=== PATIENT | female | born 1975 | race Caucasian/White ===

== ENCOUNTER 2018-11-14 15:49 | Outpatient (REF) | payer OTHER, SELFPAY ==
--- NOTE | 2018-11-14 15:00 | PAPFT_PTH ---
PATIENT: Bhavna Tenorio LOC: NCN U#:[id number] AGE/SX: 43/F ROOM: RE11/14/[address]: Suzi Bautista : 1975 BED: DIS: 11/14/2018 SPEC #: [id number] RECD: 11/15/18 12:59 STATUS: YEISON REJuan #: [id number] RON: 11/14/18 15:[address]: Suzi Bautista DEPT: [facility] Cytology RECD BY: Lora Freitas Tissues: 1 - CX/ENDOCX FOR PAP SMEARS Procedures: PAP THIN PREP/UVM Screening HPV DNA PROBE Comments: [id number]
[2018-11-14 21:39] LABS: Anion Gap 8.8 mmol/L (3-11); BUN 9 mg/dL (7-18); CO2 29.2 mmol/L (21.0-32.0); CREATININE 0.77 mg/dL (0.55-1.02); Calcium 9.3 mg/dL (8.5-10.1); Chloride 101 mmol/L (98-107); Cholesterol 195 mg/dL (50-200); Glucose 78 mg/dL (70-100); HDL Cholesterol 66 mg/dL (40-60); LDL CHOLESTEROL 103 mg/dL (<100); Potassium 3.6 mmol/L (3.5-5.1); Sodium 139 mmol/L (136-145); Triglyceride 131 mg/dL (30-150)
== END 2018-11-14 16:09 ==
LOC: NCHCN 15:49
PROVIDERS: PCP Registered Nurse; Visit Provider Registered Nurse
DX: Z00.00 Encounter for general adult medical examination without abnormal findings (principal); Z13.220 Encounter for screening for lipoid disorders; Z13.228 Encounter for screening for other metabolic disorders; Z12.4 Encounter for screening for malignant neoplasm of cervix; Z11.51 Encounter for screening for human papillomavirus (HPV)
CPT/HCPCS: 80048; 80061; 83721; 88142; 87624

== ENCOUNTER 2020-09-03 17:21 | Outpatient (REF) | payer OTHER, SELFPAY ==
[2020-09-03 21:08] LABS: ALT 28 U/L (14-59); AST 15 U/L (15-37); Albumin 3.8 g/dL (3.4-5.0); Alkaline Phosphatase 78 U/L (46-116); Anion Gap 9.9 mmol/L (3-11); BUN 9 mg/dL (7-18); Bilirubin, Total 0.6 mg/dL (0.2-1.0); CO2 28.1 mmol/L (21.0-32.0); CREATININE 0.68 mg/dL (0.55-1.02); Calcium 8.6 mg/dL (8.5-10.1); Chloride 103 mmol/L (98-107); Glucose 128 mg/dL (74-106); Potassium 3.7 mmol/L (3.5-5.1); Sodium 141 mmol/L (136-145); Total Protein 6.5 g/dL (6.4-8.2)
== END 2020-09-03 17:41 ==
LOC: NCHCN 17:21
PROVIDERS: PCP Registered Nurse; Visit Provider Registered Nurse
DX: I10 Essential (primary) hypertension (principal); Z72.89 Other problems related to lifestyle
CPT/HCPCS: 80053

== ENCOUNTER 2021-12-23 16:50 | Outpatient (REF) | payer BC, SELFPAY ==
[2021-12-23 14:41] LABS: ALT 31 U/L (14-59); AST 16 U/L (15-37); Albumin 3.9 g/dL (3.4-5.0); Alkaline Phosphatase 70 U/L (46-116); Anion Gap 8.8 mmol/L (3-11); BUN 9 mg/dL (7-18); Bilirubin, Total 0.6 mg/dL (0.2-1.0); CO2 26.2 mmol/L (21.0-32.0); CREATININE 0.6 mg/dL (0.55-1.02); Chloride 104 mmol/L (98-107); Glucose 105 mg/dL (74-106); Potassium 4.1 mmol/L (3.5-5.1); Sodium 139 mmol/L (136-145); Total Protein 6.8 g/dL (6.4-8.2)
== END 2021-12-23 16:51 | disposition home or self-care (01) ==
LOC: NCHCN 16:50
PROVIDERS: PCP Registered Nurse; Visit Provider Registered Nurse
DX: I10 Essential (primary) hypertension (principal); Z72.89 Other problems related to lifestyle
CPT/HCPCS: 80053

== ENCOUNTER 2022-11-09 15:19 | Outpatient (REF) | payer BC, SELFPAY ==
--- NOTE | 2022-11-09 14:00 | ENDOMET_PTH ---
PATIENT: Bhavna Tenorio LOC: DEMETRICE U#:[id number] AGE/SX: 47/F ROOM: RE11/09/[address]: Svetlana Arce MD : 1975 BED: DIS: 11/09/2022 SPEC #: [id number] RECD: 11/09/22 18:20 STATUS: YEISON REQ #: [id number] RON: 11/09/22 14:[address]: Svetlana Arce DEPT: Surgical Specimen RECD BY: Lora Freitas ENTERED: 11/09/22 18:22 SP TYPE: Endomet OTHR DR: Suzi Bautista Tissues: 1 - ENDOMETRIUM BX/RIZWAN Procedures: GROSS AND MICRO LEVEL 4 Comments: [id number]
--- OUTSIDE RECORDS SUMMARY | 2022-11-09 15:20 | XMS_ITS | Continuity of Care Document ---
:1975 Author Organization [facility] Address [address] [place] [address] Care Team Providers Name Role Phone Suzi Bautista Primary Care Physician Encounter NCTY_ID Date(s): 09/13/22 - 09/13/[address] [address] Discharge Disposition: Home or Self Care Attending Physician: Suzi Bautista Admitting Physician: Suzi Bautista Referring Physician: Suzi Bautista Social History Social History Type Response Sex Female Patient Care team information PersonnelName: Suzi Bautista Address: Address: [address] [address]
--- OUTSIDE RECORDS SUMMARY | 2022-11-09 15:20 | XMS_ITS | Continuity of Care Document ---
:1975 Author Organization [facility] Address [address] [place] [address] Care Team Providers Name Role Phone Suzi Bautista Primary Care Physician Encounter NCTY_SD Date(s): 09/20/22 - 09/20/22 [facility] [address] [place] [address] Discharge Disposition: Home or Self Care Attending Physician: Kana Elliott DDS Admitting Physician: Kana Elliott DDS Referring Physician: Kana Elliott DDS Social History Social History Type Response Sex Female Patient Care team information PersonnelName: Suzi Bautista [employer] Address: Address: [address] [address]- [place]
== END 2022-11-09 15:20 | disposition home or self-care (01) ==
LOC: LBN 15:19
PROVIDERS: PCP Registered Nurse; Visit Provider Obstetrics & Gynecology
DX: N85.8 Other specified noninflammatory disorders of uterus (principal); T38.5X5A Adverse effect of other estrogens and progestogens, initial encounter; N93.8 Other specified abnormal uterine and vaginal bleeding
CPT/HCPCS: 88305

== ENCOUNTER 2022-11-13 02:53 | Outpatient (CLI) | payer BC, SELFPAY ==
[2022-11-13 09:50] LABS: HCT 45.5 % (36.0-46.0); HGB 15.7 g/dL (11.2-15.7); MCH 33.5 pg (27.0-33.0); MCHC 34.5 % (32.0-36.0); MCV 97 fL (80-95); MPV 9.3 fL (8.0-11.0); Platelet Count 219 10^3/uL (130-400); RBC 4.69 10^6/uL (3.93-5.22); RDW 12.6 % (11.7-14.6); RDW-SD 45.1 fL; WBC 8.52 10^3/uL (4.4-10.8)
[2022-11-13 10:30] LABS: Source Nasal/Nares
[2022-11-13 11:11] LABS: COVID-19 PCR Negative (Negative)
== END 2022-11-13 02:54 | disposition home or self-care (01) ==
LOC: LBO 02:53
PROVIDERS: Obstetrics & Gynecology Gynecology; PCP Registered Nurse; Visit Provider Obstetrics & Gynecology
DX: D25.9 Leiomyoma of uterus, unspecified (principal); N92.4 Excessive bleeding in the premenopausal period; Z01.818 Encounter for other preprocedural examination; Z01.812 Encounter for preprocedural laboratory examination
CPT/HCPCS: 36415; 85027; 86850; 86900; 86901; 87635

== ENCOUNTER 2022-11-15 07:48 | Inpatient (IN) | payer BC, SELFPAY ==
[2022-11-15] VITALS (16 sets, daily range): BP systolic 77–155; BP diastolic 39–90; PULSE 64–85; RESP 11–18; TEMP 36.3–37.2; O2SAT 96–98
[2022-11-15 08:07] LABS: Source Nasal/Nares
[2022-11-15] MEDS: Lactated Ringers 1,000 ML 125 ML IV ×2 (08:24→13:15)
[2022-11-15 08:46] LABS: COVID-19 PCR Negative (Negative)
[2022-11-15] MEDS: metroNIDAZOLE 500 MG TAB PO (09:00)
--- NOTE | 2022-11-15 09:13 | W.ANESPRE ---
General Info Date of Service Date Performed: 11/15/22 Height: 5 ft 6 in Weight: 84.482 kg Body Mass Index (BMI): 30.0 Surgical Procedure: Operation Date: 11/15/22 09:25 Proposed Procedure Side Surgeon p Hysterectomy Abdominal Svetlana Arce MD Meds Allergies and Home Medications Allergies Allergy/AdvReac Type Severity Reaction Status Date / Time No Known Allergies Allergy Verified 11/15/22 08:21 Home Medication Medication Instructions Recorded lisinopril 10 mg tablet 10 mg PO DAILY 10/09/22 Current Visit Medications: Current Medications Generic Name Dose Route Start Last Admin Trade Name Freq PRN Reason Stop Dose Admin Ringer's Solution 1,000 mls @ 125 mls/hr 11/15/22 06:00 11/15/22 08:24 IV 12/14/22 23:59 125 mls/hr INFUSION SCAR Administration Cefazolin Sodium/Dextrose 2 gm in 50 mls @ 100 mls/hr 11/15/22 06:00 Ancef Duplex IVPB 11/15/22 16:00 PREOP SCAR IV Miscellaneous Supplies 1 each 11/15/22 06:00 Iv Access IV 12/14/22 23:59 DIRECTED SCAR Metronidazole 500 mg 11/15/22 09:00 11/15/22 09:00 Metronidazole 500 Mg Tab PO 11/15/22 16:00 500 mg PREOP SCAR Administration Sodium Chloride 0 ml 11/15/22 06:00 Normal Saline Flush 10 Ml Syr IV 12/14/22 23:59 PRN PRN Sodium Chloride 0 ml 11/15/22 06:00 Normal Saline 10 Ml Vial IJ 12/14/22 23:59 DIRECTED PRN Sterile Water 0 ml 11/15/22 06:00 Water,Injection,Sterile 10 Ml Vial IJ 12/14/22 23:59 DIRECTED PRN PFSH Active Problems Active Problems: Problem Status Onset Code Fibroid uterus D25.9 Abnormal perimenopausal bleeding N92.4 Hypertension I10 Medical History Medical History Comments:: 11/15/22 pt reports mother is sensative to medications, meaning small doses go a long way Tobacco Smoking/Tobacco Use Status: Current every day Tobacco Type: cigarettes Smoking packs per day: 1 Smoking cigarettes per day: 20.0 Alcohol Alcohol Intake: current Alcohol intake frequency: a few times a week Details: Pt reports 6 2-3 times a week Substance Use Substance use: Never Substance use type: does not use Prental History History Para 2 Hx # Term Pregnancies 2 Multiple births Hx # Pregnancies Ectopic pregnancies AB induced Hx Number of Living Children 2 AB spontaneous Past Pregnancies Del. Date GA/Weeks # Preg Succ Route Wgt Sex Labor Lgth Anesthesia Location Prov [facility] 01/13/96 40 Yes vaginal 3798.836 g Female [facility] 05/11/98 40 Yes vaginal 3231.846 g Female [facility] Delivery Date: 01/13/96 Last Updated by: Yumiko Garrett Delivery Date: 05/11/98 Last Updated by: Yumiko De Paz Vital Signs and Lab Results Vital Signs Most Recent Vital Signs in EMR: Most Recent Vital Signs Temp Pulse Resp BP Pulse Ox 36.4 C L 83 16 155/90 H 98 11/15/22 08:12 11/15/22 08:12 11/15/22 08:12 11/15/22 08:12 11/15/22 08:12 Lab Results Blood Type / Crossmatch: Patient ABO/Rh O Positive 11/13/22 Antibody Screen NEGATIVE 11/13/22 Complete Blood Count: White Blood Count 8.52 10^3/uL (4.4-10.8) 11/13/22 09:40 Red Blood Count 4.69 10^6/uL (3.93-5.22) 11/13/22 09:40 Hemoglobin 15.7 g/dL (11.2-15.7) 11/13/22 09:40 Hematocrit 45.5 % (36.0-46.0) 11/13/22 09:40 Platelet Count 219 10^3/uL (130-400) 11/13/22 09:40 Complete Metabolic Panel: No Data to Display Liver Function Panel: No Data to Display Coagulation Panel: No Data to Display Cardiac Panel: No Data to Display Arterial Blood Gas: No Data to Display Venous Blood Gas: No Data to Display Pancreas Panel: No Data to Display Thyroid Panel: No Data to Display Infectious Disease: Coronavirus (COVID-19)(PCR) Negative (Negative) 11/13/22 09:55 Coronavirus 2019 Source Nasal/Nares 11/15/22 08:00 Blood Cultures: No Data to Display Toxicology Panel: No Data to Display Panel: No Data to Display Anesthesia Assessment and Plan Anesthesia History Personal History: No History of General Anesthesia Family History: No Family History of Anesthesia Complications Exercise Tolerance Exercise Tolerance: Metabolic Equivalents>4 Pertinent Negatives Pertinent Negatives: No Symptoms of GERD, No Major Cardiovascular Symptoms or Complaints, No Major Pulmonary Symptoms or Complaints and No History of CVA/TIA Cardiac & Pulmonary Exam Cardiac Exam: Normal S1/S2 Heart Sounds Pulmonary Exam: Clear Bilateral Breath Sounds Implantable Cardiac Device Does patient have a Pacemaker or an ICD?: No Airway Exam Known Difficult Airway: No Mallampati Class: 2 Mouth Opening: Normal (> 3cm) Thyromental Distance: Greater than 3 cm Neck Range of Motion: Full ROM Neck Circumference: Normal Teeth Condition: Generalized Poor Dentition Airway Comments: Slightly loose right upper tooth ASA Classification ASA Score: ASA 2 Emergency Case?: No NPO Status NPO Status: NPO Clears >2 hours, Solids >8 hours Status Status: Not Per Patient Anesthesia Plan Resuscitation Status: Full Code Anesthesia Technique: General Anesthesia Airway Planned: Endotracheal Tube Pain Management: Intrathecal Analgesia Monitors Used: Standard Monitors
[2022-11-15] MEDS: ceFAZolin 2 GM/50 ML BAG IVPB (09:41)
--- NOTE | 2022-11-15 10:50 | UTER_PTH ---
PATIENT: Bhavna Tenorio LOC: OBS U#:[id number] AGE/SX: 47/F ROOM: OBS.306 RE11/15/[address]: Svetlana Arce MD : 1975 BED: A DIS: 11/16/2022 SPEC #: [id number] RECD: 11/15/22 13:01 STATUS: YEISON REQ #: [id number] RON: 11/15/22 10:[address]: Svetlana Arce DEPT: Surgical Specimen RECD BY: Lora Freitas ENTERED: 11/15/22 13:02 SP TYPE: UTER OTHR DR: Suzi Bautista Tissues: 1 - OVARY NOT TUMOR W OR W/O TUBES 2 - OVARY NOT TUMOR W OR W/O TUBES 3 - UTERUS W OR W/O OVARIES(NOT TUMOR/PROLAPSE) Procedures: GROSS AND MICRO LEVEL 5 Comments: [id number] (PLEASE VENEGAS)
--- NOTE | 2022-11-15 11:00 | PAPNONF_PTH ---
PATIENT: Bhavna Tenorio LOC: OBS U#:[id number] AGE/SX: 47/F ROOM: OBS.306 RE11/15/[address]: Svetlana Arce MD : 1975 BED: A DIS: 11/16/2022 SPEC #: [id number] RECD: 11/15/22 13:14 STATUS: YEISON REQ #: [id number] RON: 11/15/22 11:[address]: Svetlana Arce DEPT: [facility] Cytology RECD BY: Lora Freitas ENTERED: 11/15/22 13:14 SP TYPE: PAPREALF KHLOE DR: Suzi Bautista Tissues: 1 - BODY FLUID CYTO(SPUTUM/URINE)UVM Procedures: BODY FLUID CYTO(URINE/SPUTUM) Comments: [id number] (SENT FRESH) (PLEASE VENEGAS) (REFRIGERATED)
[2022-11-15] MEDS: Bupivacaine 0.25% Pres-Free 10 ML VIAL (12:10)
--- NOTE | 2022-11-15 12:52 | ROE_ITS ---
Date of service: 11/15/22 Time of Service: 10:00 Operative Note Operative Note DATE OF PROCEDURE: 11/15/22 PRE-OP DIAGNOSIS: large pedunculated uterine fibroid POST-OP DIAGNOSIS: other (Enlarged left ovarian mass) PROCEDURE: Total Abdominal Hysterectomy, Bilateral salpingoophorectomy, pelvic washings SURGEON: Svetlana Arce ASSISTING SURGEON: Tiffanie Perla Refer to Anesthesia Record ESTIMATED BLOOD LOSS: 140 PATHOLOGY: other (uterus, cervix, ovaries and tubes) COMPLICATIONS: None Patient was transported to: PACU Patient's condition: stable Indications: Pt had what was thought to be a large pedunculated fibroid on ultrasound. She had been having irregular bleeding x2yrs since switching her Mirena IUD. She desired definitive treatment with hysterectomy. Findings: Enlarged solid left ovary, 12-13cm, smooth walled with one small area adhesed to the right pelvic sidewall. Normal appearing right ovary with a small cyst. Normal appearing uterus with IUD in situ. Normal appearing tubes with the left one stuck to the left ovary. Unable to visualize the appendix Procedure Description: After informed consent was signed the patient was taken to the operating room. She was given spinal anesthesia, SCDs were placed on her legs and a lizama catheter was introduced into her bladder. Exam under anesthesia revealed an enlarged pelvic mass. She underwent abdominal and vaginal prep and was draped in the dorsal supine position. The patient was tested and spinal anesthesia was found to be adequate. A time out was performed. The skin was injected with bupivocaine along the length of the planned incision.A skin incision was made with the scalpel and carried down to the underlying layer of fascia with blunt dissection. The fascia was incised on either side of the midline and the fascial incision extended laterally with a combination of sharp and blunt dissection. The inferior edge of the fascia was grasped with yesy clamps and tented up and dissected down with a combination of sharp and blunt dissection. Then the superior edge of the fascial incision was grasped with yesy clamps and tented up and dissected down with a combination of sharp and blunt dissection. The rectus muscles were in the midline and the peritoneum was entered bluntly. The peritoneal incision was extended laterally with blunt dissection. Upon entrance into the abdominal cavity a large firm white mass was noted and was delivered from the abdomen. A fallopian tube was adherent to the mass. After further inspection a normal uterus was discovered and the mass was noted to be the left ovary. The right ovary was identified and appeared normal with a small cyst. Pelvic washings were collected. Then an intra-op [place] [facility] [place]. The left ovary had a small amount of adhesions to the right pelvic side wall above the uterus. These were released with blunt dissection. The utero-ovarian ligament was then clamped, cauterized and cut with the hand-held ligasure device. The infundibulo-pelvic ligament was identified and clamped, cauterized and cut. The broad ligament was then further clamped, cauterized and cut to release the left ovary and tube. The bowel was packed with moist laps and the O'Hill-O'Sun retractor was inserted. The left round ligament was identified and clamped, cauterized and cut. Dissection via cautery was continued along the anterior and posterior leaf of the broad ligament. The uterine vessels were identified, then clamped and cauterized x2 and cut proximally. The right infundibulopelvic ligament was identified and grasped with the handheld ligasure device, then clamped, cauterized and cut. The utero-ovarian ligament was clamped, cauterized and cut, as well as the broad ligament to release the right ovary and tube, allowing better visualization. Dissection via cautery was continued along the anterior and posterior leaf of the broad ligament. The uterine vessels were identified, then clamped and cauterized x2 and cut proximally. The bladder flap was dissected with cautery and a combination of sharp and blunt dissection. The cardinal ligaments were clamped, cauterized and cut bilaterally. Then the uterosacral ligaments were clamped, cut with sharp dissection and suture ligated bilaterally. The suture was held for later use. Curved clamps were used to clamp the vaginal tissue under the cervix. The uterus was removed with sharp dissection into the vagina. The vaginal cuff was closed with several 0-vicryl [id number] sutures taking care to incorporate both corners and the peritoneum. Good hemostasis was noted. The uterosacral ligaments were then tied together over the vaginal cuff. All the pedicles were inspected for good hemostasis. The retractor and packing were removed. We were unable to identify the appendix. There was good hemostasis of the rectus muscles. The fascia was closed with 0- vicryl in a running unlocked fashion. The subcuticular layer was irrigated and closed with interrupted sutures of 3-0 vicryl. The skin was closed with 4-0 vicryl in a running subcuticular fashion. The incision was cleaned. Mastisol and steristrips were placed. A dressing was placed. The patient was moved to the stretcher and taken to the recovery room in stable condition.
--- NOTE | 2022-11-15 15:14 | W.ANESPOSTOP ---
Postoperative Evaluation Date, Time and Location Date Performed: 11/15/22 Time Performed: 15:15 Patient Location: Obstetrics Vital Signs Most Recent Imported Vital Signs: Most Recent Vital Signs Temp Pulse Resp BP Pulse Ox 36.5 C 66 16 96/67 L 97 11/15/22 13:35 11/15/22 14:55 11/15/22 14:55 11/15/22 14:55 11/15/22 14:55 Pain Score Most Recent Pain Score: Most Recent Pain Score Pain Level 0 11/15/22 14:55 Assessment Mental Status: Awake (Alert & Oriented to Patient Baseline) Airway and Respiratory Function: Patent airway with normal (patient baseline) respiratory exam Cardiovascular Function: Hemodynamically Stable Hydration Status: Adequately Hydrated Nausea & Vomiting: No Nausea or Vomiting Pain: Pt. Denies Any Pain Peripheral Nerve Block: Patient did not receive a nerve block (On floor- no pain post intathecal narcotics )
[2022-11-15] MEDS: NALBUPHINE 5 MG in Normal Saline 50 ML 100 MG IVPB (15:30)
[2022-11-15] MEDS: Ibuprofen 600 MG TAB PO (18:13)
[2022-11-16] MEDS: Ibuprofen 600 MG TAB PO ×2 (00:09→06:35)
[2022-11-16 00:18] VITALS: BP 120/59; PULSE 84; RESP 18; TEMP 36.6
[2022-11-16] MEDS: Lactated Ringers 1,000 ML 125 ML IV (01:05)
[2022-11-16 02:05] VITALS: RESP 18
[2022-11-16 03:32] VITALS: BP 94/64; PULSE 81; RESP 18; TEMP 36.6
[2022-11-16 07:22] VITALS: BP 106/60; PULSE 63; RESP 16; TEMP 36.9; O2SAT 98
[2022-11-16] MEDS: Acetaminophen 325 MG TAB 650 MG PO (09:44)
--- NOTE | 2022-11-16 09:44 | DSE_ITS ---
Date of service: 11/16/22 Time of Service: 09:44 Discharge Plan Disposition Patient Disposition: Home Condition: Good Discharge Details Reason For Visit: Post-Op Hysterectomy Admit Date/Time: 11/15/22 07:48 Admit Provider: Svetlana Arce Attending Provider: Svetlana Arce Primary Care Provider: Suzi Bautista Hospital Course Hospital Course: Pt underwent RYAN-BSO. Instead of a large fibroid she had an enlarged left ovary. Surgery was uncomplicated. She had an uneventful post-op course and desired D/C POD#1. Home Meds and New Rx's Prescriptions: New acetaminophen 325 mg Tablet 650 mg PO Q4H PRN PRNQty: 0 0RF ibuprofen 600 mg Tablet 600 mg PO Q6H Qty: 0 0RF Held lisinopril 10 mg tablet 10 mg PO DAILY Hold Instructions: Resume on 11/24/22. Check BP on Sunday or Sunday. If less than 120/80, do not resume lisinopril. If greater than 120/80, restart lisinopril. Discharge Instructions Activity:: No lifting >20lbs Equipment/Supplies:: No Equipment Needed Diet:: As Tolerated Discharge Orders Discharge Orders: Discharge Order (Routine); Ordered 11/16/22 Ordered By: Svetlana Arce DS: Summary Time Spent with Patient providing and/or coordinating discharge services: Less than 30 minutes Status at Discharge Functional status at discharge: independent ambulation Overall status at discharge: patient is back to baseline Mental Status: mental status grossly normal Speech and Movement: speech and movement normal Mood: congruent mood Affect: normal affect Exam Psych Mental Status: mental status grossly normal Speech and Movement: speech and movement normal Mood: congruent mood Affect: normal affect DS: Data Vitals/I&O Vitals and I&O: Vital Signs Temperature 98.4 F 11/16/22 07:22 Temperature Source Oral 11/16/22 07:22 Pulse 63 11/16/22 07:22 Pulse Rhythm Regular 11/16/22 07:25 Respiratory Rate 16 11/16/22 07:22 Respiratory Effort Non-Labored 11/16/22 07:25 Respiratory Depth Normal 11/16/22 07:25 Respiratory Pattern Normal 11/16/22 07:25 Blood Pressure 106/60 11/16/22 07:22 Pulse Oximetry 98 11/16/22 07:22 Respiratory End-tidal CO2 36 11/15/22 13:35 Oxygen Delivery Method Room Air 11/16/22 07:22 Oxygen Flow Rate 0 11/16/22 07:22 Pain Level 0 11/16/22 07:22 Intake & Output 11/15/22 11/15/22 11/16/22 11:59 23:59 11:59 Intake Total 50 / 2287.5 2237.5 / 2287.5 852.583 / 852.583 Output Total 815 / 815 2049 Balance 50 / 1472.5 1422.5 / 1472.5 -1197.417 / -1197.417 Weight 186 lb 4.015 oz Intake: IV 50 / 2287.5 2237.5 / 2287.5 852.583 / 852.583 Output: Urine 675 / 675 2049 Estimated Blood Loss 140 / 140 Other: Urine Color Yellow Light Anne-Marie Yellow Urine Appearance Clear Clear Clear Urine Odor None Emesis Description None Voiding Methods Toilet PFSH All Active Problems (Updated 11/16/22 @ 09:46 by Svetlana Arce MD) Mass of left ovary (Acute) Hypertension (Chronic) Medical History (Updated 11/16/22 @ 09:46 by Svetlana Arce MD) Abnormal perimenopausal bleeding Family History (Updated 11/09/22 @ 16:41 by Yumiko Flores) Other Stroke Social History (Updated 11/09/22 @ 16:37 by Yumiko Flores) Smoking/Tobacco Use Status: Current every day Tobacco Type: cigarettes Smoking packs per day: 1 Smoking cigarettes per day: 20.0 Smoking risk assessment performed?: Yes Alcohol Intake: current Alcohol Intake frequency: a few times a week Details: Pt reports 6 2-3 times a week Drug use: Never Substance use type: does not use Household members: family Number of Children: 1 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 Current gender identity: female What is your relationship status?: living with partner Panel score (0-1 are the most socially isolated patients): 1 What type of physical activity do you participate in: walking Duration: 30-45 minutes/day Frequency: 3-4 times per week Do you feel safe at home: Yes Do you feel safe in your relationship?: Yes Female Reproductive History Menstrual Age of Menarche: 11 Duration of menses: 3-5 days control method: progestin IUCD History History Para 2 Hx # Term Pregnancies 2 Multiple births Hx # Pregnancies Ectopic pregnancies AB induced Hx Number of Living Children 2 AB spontaneous Past Pregnancies Del. Date GA/Weeks # Preg Succ Route Wgt Sex Labor Lgth Anesth esia Location [facility] 01/13/96 40 Yes vaginal 8 lb 6 oz Female [facility] 05/11/98 40 Yes vaginal 7 lb 2 oz Female [facility] Delivery Date: 01/13/96 Last Updated by: Yumiko Garrett Delivery Date: 05/11/98 Last Updated by: Yumiko De Paz Time Spent with Patient Time Spent with Patient: <45 minutes Time was spent: preparing to see the patient(eg.review tests) and counseling the patient
--- NOTE | 2022-11-16 09:47 | W.PM.PROGNOT ---
Date of Service Date of service: 11/16/22 Time of Service: 09:47 Assessment and Plan Assessment and plan (1) Mass of left ovary: Status: Acute Assessment and plan: We discussed the unexpected finding of a large left ovarian mass rather than a uterine fibroid and the potential for malignancy vs a benign mass. I will call her as soon as I hear the path report. We reviewed an array of possible diagnoses. She is doing extremely well post-op and desires discharge today. (2) Hypertension: Status: Chronic Assessment and plan: Since her blood pressures have been low post-op I recommend holding her lisinopril and checking her BP tomorrow or Sat. We reviewed parameters for restarting her medication. (3) Tobacco abuse: Status: Acute Assessment and plan: We discussed cessation and she hopes to remain off it. We reviewed the increased risk for blood clots and s/s to be aware of. She should try to do regular light ambulation to decrease risk. Subjective Subjective Interval history since last seen: Pt doing extremely well today. She is ambulating without difficulty, tolerating PO intake, urinating s/p lizama removal and taking only ibuprofen for pain management. She slept ok and denies significant anxiety today or issues with not smoking. Exam Const General: cooperative, healthy appearing and no acute distress Orientation: alert, awake and oriented x3 HENMT Head: normocephalic and atraumatic GI Inspection: normal to inspection and incision (clean, dry, intact. Steristrips in place. ) Palpation: tender (mild) Extrem Other: No edema. No calf tenderness Objective Last Vital Signs Temp 98.4 F 11/16/22 07:22 Pulse 63 11/16/22 07:22 Resp 16 11/16/22 07:22 BP 106/60 11/16/22 07:22 Pulse Ox 98 11/16/22 07:22 Time Spent with Patient Time Spent with Patient: <25 minutes Time was spent: counseling the patient
== END 2022-11-16 10:20 | disposition home or self-care (01) | DRG 743 ==
LOC: PDS 07:48 → OBS 11-16 01:16
PROVIDERS: Admitting Provider Obstetrics & Gynecology; PCP Registered Nurse; Visit Provider Obstetrics & Gynecology
PROC: 0UT90ZZ Resection of Uterus, Open Approach (ICD-10-PCS; CPT 58150; principal; 2022-11-15 09:15)
DX: N83.8 Other noninflammatory disorders of ovary, fallopian tube and broad ligament (principal); I10 Essential (primary) hypertension; F17.210 Nicotine dependence, cigarettes, uncomplicated; Z20.822 Contact with and (suspected) exposure to COVID-19
CPT/HCPCS: 58150; 81025; 87635; 88104; 88307; J0690; J1100; J1885; J2250; J2405; J2704; J3010; J3490

== ENCOUNTER 2023-12-04 17:40 | Outpatient (REF) | payer BC, SELFPAY ==
[2023-12-04 22:06] LABS: HCT 45.2 % (36.0-46.0); HGB 15.7 g/dL (11.2-15.7); MCH 33.1 pg (27.0-33.0); MCHC 34.7 % (32.0-36.0); MCV 95 fL (80-95); MPV 10.2 fL (8.0-11.0); Platelet Count 226 10^3/uL (130-400); RBC 4.74 10^6/uL (3.93-5.22); RDW 12.7 % (11.7-14.6); RDW-SD 44.9 fL; WBC 8.84 10^3/uL (4.4-10.8)
[2023-12-04 22:28] LABS: ALT 41 U/L (14-59); AST 23 U/L (15-37); Albumin 3.8 g/dL (3.4-5.0); Alkaline Phosphatase 107 U/L (46-116); Anion Gap 8.6 mmol/L (3-11); BUN 13 mg/dL (7-18); Bilirubin, Total 0.3 mg/dL (0.2-1.0); CO2 28.4 mmol/L (21.0-32.0); CREATININE 0.7 mg/dL (0.55-1.02); Calcium 9.4 mg/dL (8.5-10.1); Chloride 104 mmol/L (98-107); Glucose 110 mg/dL (74-106); Potassium 4.1 mmol/L (3.5-5.1); Sodium 141 mmol/L (136-145); TSH (W/Ref FT4) 2.59 uIU/mL (0.36-3.74); Total Protein 7.5 g/dL (6.4-8.2)
[2023-12-04 23:02] LABS: Hemoglobin A1C 5.6 % (<5.7)
[2023-12-05 14:03] LABS: Calculated LDL 116 mg/dL (<100); Cholesterol 239 mg/dL (<200); HDL Cholesterol 75 mg/dL (40-60); Triglyceride 244 mg/dL (<150)
== END 2023-12-04 17:41 | disposition home or self-care (01) ==
LOC: NCHCN 17:40
PROVIDERS: PCP Registered Nurse; Visit Provider Family Medicine
DX: R63.5 Abnormal weight gain (principal); I10 Essential (primary) hypertension
CPT/HCPCS: 80053; 80061; 85027; 83036; 84443